=== PATIENT | female | born 1990 | race Caucasian/White ===

== ENCOUNTER → 2023-04-14 | Outpatient (CLI) | payer BC, OTHER ==
--- NOTE | 2023-04-14 14:56 | FL ---
EXAMINATION TYPE: FL hysterosalpingography DATE OF EXAM: 04/14/2023 CLINICAL HISTORY: Infertility. TECHNIQUE: Fluoroscopic assisted hysterosalpingogram. COMPARISON: None. FINDINGS: Fluoroscopic guidance was provided during attempted hysterosalpingogram procedure performe d by myself. A total of 54 seconds of fluoroscopic time was utilized during the procedure and two sp ot images are acquired. Total DAP =15.52. Approximately 4 cc of Isovue-370 was injected for attempted procedure. Procedure explained to patient including benefits, alternatives, and risks. Production Machine Tender image shows scattered small pelvic phleboliths. Using sterile technique, speculum was introduce d. Cervical os was cleansed with Betadine. Catheter is attempted inserted into cervical canal. Balloo n is inflated. First attempt there is leak of contrast. Catheter and speculum are withdrawn. Speculum is reinserted using sterile technique. Cervical os is better visualized. It is cleansed with Betadine. Catheter is advanced through the cervical os. Balloon is inflated. Patient experienced sev ere pain and could not tolerate continued investigation. Patient asked for balloon to be deflated and procedure to be terminated or canceled prior to obtaining diagnostic results. At this point speculum was withdrawn. Patient stayed in the department for short stay after the attempted procedure and then was discharged home in stable and satisfactory condition. IMPRESSION: As Above.
== END | disposition home or self-care (01) ==
LOC: RADUSWWP 13:24
PROVIDERS: ATTEND Obstetrics & Gynecology Reproductive Endocrinology
DX: Q50.6 Other congenital malformations of fallopian tube and broad ligament (principal)
CPT/HCPCS: 58340; 74740